=== PATIENT | male | born 1940 | race Caucasian/White ===

== ENCOUNTER 2018-02-03 11:08 | Inpatient (IN) | payer MEDICARE, MEDICAID ==
[2018-02-03] MEDS ORDERED: Lactated Ringer 1,000 ML IV ONE (12:00)
[2018-02-03 12:12] LABS: ALB/GLOB RATIO 2.1 (1.0-1.8); ALBUMIN 4.4 gm/dL (4.2-5.5); ALKALINE PHOSPHATASE 54 U/L (34-104); ANION GAP 15.4 (7.0-16.0); BILIRUBIN,TOTAL 0.7 mg/dL (0.3-1.0); BUN - UREA NITROGEN 30 mg/dL (7-25); CALCIUM SERUM 10.3 mg/dL (8.6-10.3); CHLORIDE 101 mEq/L (98-107); CREATININE - SERUM 1.6 mg/dL (0.7-1.3); GLUCOSE 169 mg/dL (70-105); MAGNESIUM 2.4 mg/dL (1.9-2.7); PHOSPHOROUS 3.1 mg/dL (2.5-5.0); POTASSIUM SERUM 4.4 mEq/L (3.5-5.1); SGOT 17 U/L (13-39); SGPT/ALT 16 U/L (7-52); SODIUM SERUM 138 mEq/L (136-145); TOTAL PROTEIN,SERUM 6.5 gm/dL (6.0-8.3)
[2018-02-03 12:15] LABS: % BASOPHILS 0.9 % (0.0-2.0); % LYMPHOCYTES 26.7 % (20.0-50.0); % MONOCYTES 10.3 % (2.0-10.0); % NEUTROPHILS 61.1 % (40.0-80.0); HEMATOCRIT 40.5 % (41.0-60); HEMOGLOBIN 13.3 gm/dL (12-16); LYMPHOCYTE ABSOLUTE 1.2 Th/cmm (1.5-3.0); MEAN CELL VOLUME 92.5 fl (80-99); MEAN CORPUSCULAR HEMOGLOBIN 30.3 pg (27.0-31.0); MEAN CORPUSCULAR HGB CONC 32.8 pg (28.0-36.0); MONOCYTE ABSOLUTE 0.5 Th/cmm (0.3-1.0); NEUTROPHILE ABSOLUTE 2.9 Th/cmm (1.8-8.0); PLATELET COUNT 246 Th/cmm (150-400); RED BLOOD COUNT 4.38 Mil/cmm (3.80-5.80); RED CELL DISTRIBUTION WIDTH 12.5 % (11.5-20.0); WHITE BLOOD COUNT 4.6 Th/cmm (4.8-10.8)
--- NOTE | 2018-02-03 12:17 | ED Physician Chart ---
ED Chief Complaint/HPI - Patient Information Date Seen:: 02/03/18 Time Seen:: 11:15 Chief Complaint:: rectal pain History of Present Illness:: rectal pain and constipation Allergies:: Allergies Allergy/AdvReac Type Severity Reaction Status Date / Time No Known Allergies Allergy Verified 12/04/15 16:32 Vitals:: Vital Signs - 8 hr 02/03/18 11:15 Temp 97.9 F HR 77 RR 19 BP 141/71 O2 Sat % 98 Historian:: Patient Review:: Nurse's Note Reviewed ED Review of Systems - Review of Systems General/Constitutional: No fever, No chills, No weight loss, No weakness, No diaphoresis, No edema, No loss of appetite Skin: No skin lesions, No rash, No bruising Head: No headache, No light-headedness Eyes: No loss of vision, No pain, No diplopia ENT: No earache, No nasal drainage, No sore throat, No tinnitus Neck: No neck pain, No swelling, No thyromegaly, No stiffness, No mass noted Cardio Vascular: No chest pain, No palpitations, No PND, No orthopnea, No edema Pulmonary: No SOB, No cough, No sputum, No wheezing GI: No nausea, No vomiting, No diarrhea, No pain, No melena, No hematochezia, Constipation, No hematemesis, Other (rectal pain) G/U: No dysuria, No frequency, No hematuria, Other (decreased urine output) Musculoskeletal: No bone or joint pain, No back pain, No muscle pain Endocrine: No polyuria, No polydipsia Psychiatric: No prior psych history, No depression, No anxiety, No suicidal ideation Hematopoietic: No bruising, No lymphadenopathy Allergic/Immuno: No urticaria, No angioedema Neurological: No syncope, No focal symptoms, No weakness, No paresthesia, No headache, No seizure, No dizziness, No confusion, No vertigo ED Past Medical History - Past Medical History Obtainable: No Past Medical History: HTN, DM, CAD, Asthma/COPD, Other (BPH) Family Medical History - Family Member Father History Unknown: Yes Ethnicity: Non- Hx Family COPD: Yes ED Physical Exam - Physical Examination General/Constitutional: Awake, Well-developed, well-nourished, Alert, No distress, GCS 15, Non-toxic appearing, Ambulatory Head: Atraumatic Eyes: Lids, conjuctiva normal, PERRL, EOMI Skin: Nl inspection, No rash, No skin lesions, No ecchymosis, Well hydrated, No lymphadenopathy ENMT: External ears, nose nl Neck: Nontender, No nuchal rigidity, No stridor Respiratory: Nl effort/Exclusion, Clear to Auscultation, No Wheeze/Rhonchi/Rales Cardio Vascular: RRR, No murmur, gallop, rubs, NL S1 S2 GI: No tenderness/rebounding/guarding, No organomegaly, No hernia, No mass/ bruits, No McBurney tenderness, Rectum exam nl Other GI comments:: distended. no hemorrhoids externally. no anal fissure. rectal exam performed: impacted. soft, formed stool present immediately on rectal exam. no masses felt. no need for occult of stool to be performed. Extremities: No tenderness or effusion, Full ROM, normal strength in all extremities, No edema, Normal digits & nails Neuro/Psych: Alert/oriented, Normal sensory exam, Normal motor strength, Mood normal, No focal deficits Misc: Normal back, No paraspinal tenderness ED Labs/Radiology/EKG Results - Lab Results Results: Laboratory Tests 02/03/18 02/03/18 11:39 11:39 Sodium 138 Potassium 4.4 Chloride 101 Carbon Dioxide 26.0 Anion Gap 15.4 BUN 30 H Creatinine 1.6 H Est GFR ( Amer) TNP Est GFR (Non-Af Amer) TNP BUN/Creatinine Ratio 18.8 Glucose 169 H Calcium 10.3 Phosphorus 3.1 Magnesium 2.4 Total Bilirubin 0.7 AST 17 ALT 16 Alkaline Phosphatase 54 Total Protein 6.5 Albumin 4.4 Globulin 2.1 Albumin/Globulin Ratio 2.1 H Valproic Acid 49.0 L ED Assessment - Assessment General Assessment: EKG from 12:11:09 p.m. reveals normal sinus rhythm, poor r wave progression and flipped t wave in AVR. No urine at all when attempt at cath made. Dr. Woods called. He will admit the patient to med/surg patient ate lunch. ED Septic Shock - . Is Septic Shock (SBP<90, OR Lactate>4 mmol\L) present?: No - <6hrs of presentation: Vital Signs: Vital Signs - 8 hr 02/03/18 11:15 Temp 97.9 F HR 77 RR 19 BP 141/71 O2 Sat % 98 ED Reassessment (Disposition) - Reassessment Reassessment Condition:: Unchanged - Diagnosis Diagnosis:: Marked dehydration Prerenal with BUN of 30 and creatinine of 1.6 Constipation and stool impaction Diabetes mellitus Hypertension - Patient Disposition Discharge/Transfer:: Acute Care w/in this hosp Admitted to:: Med/Surg Condition at Disposition:: Stable, Unchanged
--- NOTE | 2018-02-03 12:45 | Diagnostic Imaging Report ---
KUB abdominal film HISTORY: Pain Exam demonstrates nondilated stool-filled large bowel. Bowel gas pattern otherwise nonspecific. No free intraperitoneal air. Electrode lead wires noted over the pelvis. Left hip arthroplasty is seen. Scoliosis and severe degenerative changes noted in the lower lumbar spine. IMPRESSION: 1. Stool-filled nondilated distal large bowel with an otherwise nonspecific appearance.
[2018-02-03] MEDS ORDERED: MINERAL OIL ENEMA 135 ML BOTTLE RC ONE (13:35)
[2018-02-03 16:02] LABS: ALB/GLOB RATIO 2.1 (1.0-1.8); ALKALINE PHOSPHATASE 47 U/L (34-104); ANION GAP 15.1 (7.0-16.0); BILIRUBIN,TOTAL 0.6 mg/dL (0.3-1.0); BUN - UREA NITROGEN 31 mg/dL (7-25); CARBON DIOXIDE 25.2 mEq/L (21.0-31.0); CHLORIDE 102 mEq/L (98-107); CHOLESTEROL 187 mg/dL (<200); CREATININE - SERUM 1.5 mg/dL (0.7-1.3); GLUCOSE 153 mg/dL (70-105); HDL -HIGH DENSITY LIPOPROTEIN 30 mg/dL (23-92); MAGNESIUM 2.4 mg/dL (1.9-2.7); POTASSIUM SERUM 4.3 mEq/L (3.5-5.1); SGOT 14 U/L (13-39); SGPT/ALT 15 U/L (7-52); SODIUM SERUM 138 mEq/L (136-145); TOTAL PROTEIN,SERUM 5.9 gm/dL (6.0-8.3); TRIGLYCERIDES 192 mg/dL (<150)
[2018-02-03] MEDS ORDERED: Influenza Vaccine (65 yr & older) 0.5 ml Syr IM ONE (16:17)
[2018-02-03] MEDS ORDERED: Pneumococcal Vaccine 0.5 mL Vial IM ONE (16:17)
[2018-02-03] MEDS: Sodium Chloride 0.9% 1,000 ML IV SCH (16:36)
[2018-02-03] MEDS: Lactulose 10 Gm/15 mL 30mL UDC PO PRN (19:46)
[2018-02-03] MEDS: INSULIN ASPART SLIDING SCALE 100 UNITS/ML UNIT SUBQ SCH (21:03)
[2018-02-03] MEDS ORDERED: Magnesium Hydroxide (MOM) 30 mL UDC PO PRN (22:05)
[2018-02-03] MEDS ORDERED: DOC Q LACE PO SCH (22:15)
[2018-02-03] MEDS ORDERED: APAP/Codeine 300 mg/30 mg Tab PO SCH (22:15)
[2018-02-03] MEDS ORDERED: DICLOFENAC SODIUM 50 MG PO SCH (22:15)
[2018-02-04] MEDS: Pantoprazole 40 mg EC Tab PO SCH (06:48)
[2018-02-04] MEDS: INSULIN ASPART SLIDING SCALE 100 UNITS/ML UNIT SUBQ SCH ×5 (07:02→21:18)
[2018-02-04] MEDS ORDERED: INSULIN HUMAN REGULAR 100 UNITS/ML UNIT SUBQ SCH (07:30)
[2018-02-04] MEDS: Potassium Chloride 10 mEq ER Tab PO SCH (08:48)
[2018-02-04] MEDS: Lactulose 10 Gm/15 mL 30mL UDC PO PRN (08:49)
[2018-02-04] MEDS ORDERED: Non-Formulary Item 1 EA (Metformin Hcl [Metformin Hcl Er] 1,000 MG) PO SCH (09:00)
[2018-02-04] MEDS ORDERED: Non-Formulary Item 1 EA (Mirabegron [Myrbetriq] 25 MG) PO SCH (09:00)
--- NOTE | 2018-02-04 15:52 | History & Physical ---
ADMIT DATE: 02/04/2018 HISTORY OF PRESENT ILLNESS: This is a 77-year-old male with past medical history of hypertension, who came in because of abdominal pain. A few hours prior to admission, the patient experienced diffuse nonspecific abdominal pain. He had not moved his bowels for several days. Thus, he was brought to the Emergency Room. KUB showed stool filled nondilated distal large bowel. He received several doses of lactulose and had at least 3 large bowel movements this morning. He had no nausea and vomiting, fever/chills, dysuria. His labs also revealed a BUN/creatinine of 35/1.5. PAST MEDICAL HISTORY: 1. Type 2 diabetes mellitus. 2. Essential hypertension. 3. Coronary artery disease. 4. Asthma/COPD. 5. Benign prostatic hypertrophy. 6. Epilepsy. 7. Depression. CURRENT MEDICATIONS: Currently on amlodipine, APAP/codeine, aspirin, bisacodyl, BuSpar, clonidine, divalproex, Colace, Pepcid, Prozac, Neurontin, Glucotrol, Apresoline, Aspart, lactulose, loratadine, lorazepam, losartan, magnesium hydroxide, metformin, Myrbetriq, Naprosyn, pantoprazole, pneumococcal vaccine, potassium, simethicone, tamsulosin. ALLERGIES: No known drug allergies. SOCIAL AND FAMILY HISTORY: I was unable to obtain from the patient because he is nonverbal at the present time. REVIEW OF SYSTEMS: Again, I was not able to decipher directly from the patient because he is nonverbal at the present time. PHYSICAL EXAMINATION: GENERAL: The patient is arousable, not in any form of distress, looks depressed. VITAL SIGNS: His blood pressure is 165/72, pulse 59, temperature 97.4 degrees. SKIN: Poor turgor, warm, no rash, no jaundice appreciated. HEENT: Head normocephalic, atraumatic. Eyes: Extraocular muscles intact. Pupils equal, round, reactive to light and accommodates. Anicteric sclerae. [place] conjunctivae. Nose, midline nasal septum. Mouth: Dry mucosa. Poor dentition. NECK: Supple, no adenopathy, no thyromegaly, no bruits. Trachea palpated in the midline. CHEST AND CARDIOVASCULAR: S1, S2. No rub, murmur, no gallop appreciated. Point of maximal impulse fifth intercostal space, left midclavicular line. No abdominal or femoral bruits appreciated. LUNGS: Equal expansion, no use of accessory muscles. No supraclavicular retractions. Decreased breath sounds, few rhonchi, but no rales nor wheezes appreciated. ABDOMEN: Flat, but now soft, diminished bowel sounds. No further tenderness on palpation. No rebound nor muscle guarding. There were no bruits either systolic or diastolic. RECTAL: The patient refused. GENITOURINARY: Normal appearing male genitalia. MUSCULOSKELETAL: No effusions present in his joints with limited range of motion. EXTREMITIES: No evidence of edema, cyanosis nor clubbing with palpable femoral, popliteal and dorsalis pedis pulses. NEUROLOGIC: The patient, as mentioned, is arousable, not in any form of distress, remains nonverbal at the present time. He was not able to follow my neuro commands, so I was not able to pursue further my neuro exam. LABORATORY DATA AND STUDIES: Did reveal white count of 4.6, hemoglobin 13.3, hematocrit 40.5, platelets 246, polys 61.1%. Sodium 138, potassium 4.3, chloride 102, CO2 of 25, BUN 31, creatinine 1.5, glucose 153, calcium 10, phosphorus 3.1, magnesium 2.4, albumin is 4. IMPRESSION: 1. Abdominal pain secondary to constipation. 2. Constipation secondary to intake of narcotics, possible diabetic gastroparesis, ileus. 3. Acute kidney injury is likely prerenal, which have progressed to acute tubular injury. The patient has had abdominal pain and was not able to take in fluids as well as oral feedings. He was also taking Lasix. Thus, he was not able to replenish both sensible and insensible fluid losses. The possibility also of medication such as angiotensin receptor darwin, nonsteroidals should be considered, but this may cause acute interstitial nephritis. He also has BPH, Myrbetriq and tamsulosin for which we should also consider the possibility of obstructive uropathy. 4. Type 2 diabetes mellitus. 5. Essential hypertension. 6. Coronary artery disease. 7. Asthma/chronic obstructive pulmonary disease. 8. Benign prostatic hypertrophy. 9. Epilepsy. 10. Depression. PLAN: 1. Continue with laxatives. 2. IV fluids since the patient is dehydrated. 3. Urinalysis. 4. Urine spot sodium, eosinophils, and creatinine. 5. Renal ultrasound. 6. Urine microalbumin to creatinine ratio. 7. Electrolytes. 8. Discontinue nonsteroidals. [facility]# [id number]
[2018-02-04] MEDS: Sodium Chloride 0.9% 1,000 ML IV SCH (19:56)
[2018-02-05] MEDS: APAP/Codeine 300 mg/30 mg Tab PO PRN ×2 (00:39→22:10)
[2018-02-05 05:34] LABS: HEMOGLOBIN 13.6 gm/dL (12-16); RED BLOOD COUNT 4.44 Mil/cmm (3.80-5.80); WHITE BLOOD COUNT 6.7 Th/cmm (4.8-10.8)
[2018-02-05 05:35] LABS: % NEUTROPHILS 64.7 % (40.0-80.0); HEMATOCRIT 41.5 % (41.0-60); MEAN CELL VOLUME 93.5 fl (80-99); MEAN CORPUSCULAR HEMOGLOBIN 30.7 pg (27.0-31.0); MEAN CORPUSCULAR HGB CONC 32.8 pg (28.0-36.0); MEAN PLATELET VOLUME 8.7 fl; PLATELET COUNT 218 Th/cmm (150-400); RED CELL DISTRIBUTION WIDTH 12.1 % (11.5-20.0)
[2018-02-05 05:36] LABS: % EOSINOPHILS 0.1 % (0.0-5.0); % MONOCYTES 10.3 % (2.0-10.0)
[2018-02-05 06:09] LABS: URINE SOURCE MIDSTREAM
[2018-02-05 07:10] LABS: URINE BILIRUBIN NEGATIVE (NEGATIVE); URINE BLOOD NEGATIVE (NEGATIVE); URINE GLUCOSE (UA) NEGATIVE (NEGATIVE); URINE KETONE NEGATIVE (NEGATIVE); URINE LEUKOCYTE ESTERASE NEGATIVE (NEGATIVE); URINE NITRATE NEGATIVE (NEGATIVE); URINE PROTEIN NEGATIVE (NEGATIVE); URINE UROBILINOGEN 0.2 E.U./dL (0.2 - 1.0)
[2018-02-05] MEDS: INSULIN ASPART SLIDING SCALE 100 UNITS/ML UNIT SUBQ SCH ×4 (07:35→22:24)
[2018-02-05 07:58] LABS: URINE CLARITY CLEAR (CLEAR); URINE COLOR YELLOW; URINE MICROSCOPIC INDICATED? YES
[2018-02-05 07:59] LABS: URINE BACTERIA OCCASIONAL /hpf (NONE SEEN); URINE EPITHELIAL CELLS NONE SEEN /lpf (FEW); URINE RBC NONE SEEN /hpf (0-5); URINE WBC 0-2 /hpf (0-5)
[2018-02-05] MEDS: Sodium Chloride 0.9% 1,000 ML IV SCH ×2 (08:27→22:10)
[2018-02-05 08:28] LABS: ANION GAP 12.1 (7.0-16.0); BUN - UREA NITROGEN 16 mg/dL (7-25); CALCIUM SERUM 9.1 mg/dL (8.6-10.3); CARBON DIOXIDE 24.7 mEq/L (21.0-31.0); CHLORIDE 108 mEq/L (98-107); CREATININE - SERUM 1.1 mg/dL (0.7-1.3); GLUCOSE 147 mg/dL (70-105); MAGNESIUM 1.8 mg/dL (1.9-2.7); PHOSPHOROUS 2.8 mg/dL (2.5-5.0); POTASSIUM SERUM 3.8 mEq/L (3.5-5.1); SODIUM SERUM 141 mEq/L (136-145); URIC ACID 3.9 mg/dL (4.4-7.6)
[2018-02-05] MEDS: Potassium Chloride 10 mEq ER Tab PO SCH (08:51)
[2018-02-05] MEDS: Pantoprazole 40 mg EC Tab PO SCH (08:55)
--- NOTE | 2018-02-05 09:57 | Diagnostic Imaging Report ---
Renal ultrasound HISTORY: Acute renal injury. COMPARISON: None Technique: Sonography of the kidneys and urinary bladder was performed in multiple planes. FINDINGS: The right kidney measures 12.2 x 5.6 cm. No evidence of focal lesions or hydronephrosis. The left kidney measures 10.5 x 6.4 cm. No evidence of focal lesions or hydronephrosis. There is mild thinning of the bilateral renal cortices. The bladder wall is mildly thickened. A urinary bladder diverticulum is noted measuring 2.8 x 2.0 cm. Note, patient was unable to void. IMPRESSION: No evidence of hydronephrosis. Urinary bladder diverticulum noted. Mild urinary bladder wall thickening, inflammatory or infiltrative process cannot be excluded. Mild thinning of the bilateral renal cortices.
[2018-02-05 10:30] LABS: EOSINOPHIL SMEAR SOURCE URINE; EOSINOPHILS SMEAR COUNT NONE SEEN (NONE SEEN)
[2018-02-05] MEDS ORDERED: Mag Sulfate 2gm/50mL Premix 2 GM/50 ML BAG IV ONE (12:14)
--- NOTE | 2018-02-05 12:21 | General Progress Note ---
Subjective - Review of Systems Service Date: 02/05/18 Subjective: still has abd discomfort Objective - Results Result Diagrams: 02/05/18 05:05 02/05/18 05:05 Recent Labs: Laboratory Last Values WBC 6.7 Th/cmm (4.8-10.8) 02/05/18 05:05 RBC 4.44 Mil/cmm (3.80-5.80) 02/05/18 05:05 Hgb 13.6 gm/dL (12-16) 02/05/18 05:05 Hct 41.5 % (41.0-60) 02/05/18 05:05 MCV 93.5 fl (80-99) 02/05/18 05:05 MCH 30.7 pg (27.0-31.0) 02/05/18 05:05 MCHC Differential 32.8 pg (28.0-36.0) 02/05/18 05:05 RDW 12.1 % (11.5-20.0) 02/05/18 05:05 Plt Count 218 Th/cmm (150-400) 02/05/18 05:05 MPV 8.7 fl 02/05/18 05:05 Neutrophils % 64.7 % (40.0-80.0) 02/05/18 05:05 Lymphocytes % 23.0 % (20.0-50.0) 02/05/18 05:05 Monocytes % 10.3 % (2.0-10.0) H 02/05/18 05:05 Eosinophils % 0.1 % (0.0-5.0) 02/05/18 05:05 Basophils % 0.0 % (0.0-2.0) 02/05/18 05:05 Eos Smear Source URINE 02/05/18 05:45 Eos Smear Total Cells NONE SEEN (NONE SEEN) 02/05/18 05:45 Sodium 141 mEq/L (136-145) 02/05/18 05:05 Potassium 3.8 mEq/L (3.5-5.1) 02/05/18 05:05 Chloride 108 mEq/L (98-107) H 02/05/18 05:05 Carbon Dioxide 24.7 mEq/L (21.0-31.0) 02/05/18 05:05 Anion Gap 12.1 (7.0-16.0) 02/05/18 05:05 BUN 16 mg/dL (7-25) 02/05/18 05:05 Creatinine 1.1 mg/dL (0.7-1.3) 02/05/18 05:05 Est GFR ( Amer) TNP 02/05/18 05:05 Est GFR (Non-Af Amer) TNP 02/05/18 05:05 BUN/Creatinine Ratio 14.5 02/05/18 05:05 Glucose 147 mg/dL (70-105) H 02/05/18 05:05 POC Glucose 177 MG/DL (70 - 105) H 02/05/18 11:18 Uric Acid 3.9 mg/dL (4.4-7.6) L 02/05/18 05:05 Calcium 9.1 mg/dL (8.6-10.3) 02/05/18 05:05 Phosphorus 2.8 mg/dL (2.5-5.0) 02/05/18 05:05 Magnesium 1.8 mg/dL (1.9-2.7) L 02/05/18 05:05 Total Bilirubin 0.6 mg/dL (0.3-1.0) 02/03/18 11:39 AST 14 U/L (13-39) 02/03/18 11:39 ALT 15 U/L (7-52) 02/03/18 11:39 Alkaline Phosphatase 47 U/L (34-104) 02/03/18 11:39 Troponin I 0.01 ng/mL (0.01-0.05) 02/03/18 11:39 Total Protein 5.9 gm/dL (6.0-8.3) L 02/03/18 11:39 Albumin 4.0 gm/dL (4.2-5.5) L 02/03/18 11:39 Globulin 1.9 gm/dL 02/03/18 11:39 Albumin/Globulin Ratio 2.1 (1.0-1.8) H 02/03/18 11:39 Triglycerides 192 mg/dL (<150) H 02/03/18 11:39 Cholesterol 187 mg/dL (<200) 02/03/18 11:39 LDL Cholesterol Direct 154 mg/dL (75-193) 02/03/18 11:39 HDL Cholesterol 30 mg/dL (23-92) 02/03/18 11:39 TSH 1.25 uIU/ml (0.34-5.60) 02/03/18 11:39 Urine Source MIDSTREAM 02/05/18 05:45 Urine Color YELLOW 02/05/18 05:45 Urine Clarity CLEAR (CLEAR) 02/05/18 05:45 Urine pH 6.0 (4.6 - 8.0) 02/05/18 05:45 Ur Specific [place] 1.020 (1.005-1.030) 02/05/18 05:45 Urine Protein NEGATIVE mg/dL (NEGATIVE) 02/05/18 05:45 Urine Glucose (UA) NEGATIVE mg/dL (NEGATIVE) 02/05/18 05:45 Urine Ketones NEGATIVE mg/dL (NEGATIVE) 02/05/18 05:45 Urine Blood NEGATIVE (NEGATIVE) 02/05/18 05:45 Urine Nitrate NEGATIVE (NEGATIVE) 02/05/18 05:45 Urine Bilirubin NEGATIVE (NEGATIVE) 02/05/18 05:45 Urine Urobilinogen 0.2 E.U./dL (0.2 - 1.0) 02/05/18 05:45 Ur Leukocyte Esterase NEGATIVE (NEGATIVE) 02/05/18 05:45 Urine RBC NONE SEEN /hpf (0-5) 02/05/18 05:45 Urine WBC 0-2 /hpf (0-5) 02/05/18 05:45 Ur Epithelial Cells NONE SEEN /lpf (FEW) 02/05/18 05:45 Urine Bacteria OCCASIONAL /hpf (NONE SEEN) 02/05/18 05:45 Ur Random Sodium 91 mmol/L 02/05/18 05:45 Urine Creatinine 125.0 mg/dl (39.0-259.0) 02/05/18 05:45 Valproic Acid 49.0 ug/mL (50.0-100.0) L 02/03/18 11:39 - Physical Exam Vitals and I&O: Vital Signs Temp 96.9 F 02/05/18 11:56 Pulse 56 02/05/18 11:56 Resp 18 02/05/18 11:56 BP 157/60 02/05/18 11:56 Pulse Ox 98 02/05/18 11:56 Intake & Output 02/04/18 02/05/18 02/05/18 18:59 06:59 18:59 Intake Total 700 1346.25 142.5 Balance 700 1346.25 142.5 Weight (lbs) 81.647 kg 81.193 kg Intake: Intake, IV Amount 796.25 142.5 Sodium Chloride 0.9% 1, 796.25 142.5 000 ml @ 75 mls/hr IV . [id number] [facility] Rx#:[id number] Oral 700 550 Other: # Voids 3 4 # Bowel Movements 2 2 Stool Characteristics Soft Soft Formed Formed Brown Brown Weight Source Bedscale Bedscale Active Medications: Current Medications Acetaminophen/Codeine Phosphate (Tylenol W/Codeine #3) 1 tab PO BID PRN PRN Reason: Severe Pain Stop: 04/04/18 22:14 Last Admin: 02/05/18 00:39 Dose: 1 tab Amlodipine Besylate (Norvasc) 5 mg PO DAILY [facility] Stop: 04/05/18 08:59 Last Admin: 02/05/18 08:51 Dose: 5 mg Aspirin (Ecotrin) 81 mg PO DAILY [facility] Stop: 04/05/18 08:59 Last Admin: 02/05/18 08:51 Dose: 81 mg Bisacodyl (Dulcolax 10 Mg Supp) 10 mg RC HS [facility] Stop: 04/04/18 20:59 Last Admin: 02/04/18 20:45 Dose: 10 mg Buspirone HCl (Buspar) 10 mg PO TID [facility]; Protocol Stop: 04/04/18 22:14 Last Admin: 02/05/18 08:55 Dose: 10 mg Divalproex Sodium (Depakote Dr) 500 mg PO BID [facility]; Protocol Stop: 04/04/18 22:14 Last Admin: 02/05/18 08:51 Dose: 500 mg Docusate Sodium (Colace) 250 mg PO BID [facility] Stop: 04/04/18 16:59 Last Admin: 02/05/18 08:51 Dose: 250 mg Famotidine (Pepcid) 20 mg PO DAILY [facility] Stop: 04/05/18 08:59 Last Admin: 02/05/18 08:51 Dose: 20 mg Fluoxetine HCl (Prozac) 10 mg PO DAILY [facility]; Protocol Stop: 04/05/18 08:59 Last Admin: 02/05/18 08:50 Dose: 10 mg Gabapentin (Neurontin) 200 mg PO TID [facility] Stop: 04/04/18 22:14 Last Admin: 02/05/18 08:50 Dose: 200 mg Glipizide (Glucotrol) 10 mg PO BIDAC [facility] Stop: 04/05/18 07:29 Last Admin: 02/05/18 08:55 Dose: 10 mg Hydralazine HCl (Apresoline) 25 mg PO TID [facility] Stop: 04/05/18 08:59 Last Admin: 02/05/18 08:51 Dose: 25 mg Sodium Chloride (Nacl 0.9%) 1,000 mls @ 75 mls/hr IV .[id number] [facility] Stop: 04/04/18 15:10 Last Admin: 02/05/18 08:27 Dose: 75 mls/hr Magnesium Sulfate (Magnesium Sulfate Premix) 2 gm in 50 mls @ 25 mls/hr IV X1 ONE Stop: 02/05/18 14:13 Insulin Aspart (Novolog Insulin Sliding Scale) 2 units SUBQ ACHS [facility]; Protocol Stop: 04/04/18 16:29 Last Admin: 02/05/18 12:12 Dose: 2 units Lactulose (Cephulac) 30 gm PO DAILY PRN PRN Reason: Constipation Stop: 04/04/18 15:10 Last Admin: 02/04/18 08:49 Dose: 30 gm Loratadine (Claritin) 10 mg PO DAILY [facility] Stop: 04/05/18 08:59 Last Admin: 02/05/18 08:50 Dose: 10 mg Lorazepam (Ativan) 0.5 mg PO Q12H PRN; Protocol PRN Reason: Anxiety Stop: 04/04/18 22:04 Losartan Potassium (Cozaar) 100 mg PO BID [facility] Stop: 04/05/18 08:59 Last Admin: 02/05/18 08:52 Dose: 100 mg Magnesium Hydroxide (Milk Of Magnesia) 30 ml PO DAILY PRN PRN Reason: Constipation Stop: 04/04/18 22:04 Miscellaneous (Metformin Hcl [Metformin Hcl Er]) 1,000 mg PO BID [facility] Stop: 04/05/18 08:59 Miscellaneous (Mirabegron [Myrbetriq]) 25 mg PO DAILY [facility] Stop: 04/05/18 08:59 Mupirocin (Bactroban Oint) 1 appl NS BID [facility] Stop: 02/09/18 09:01 Last Admin: 02/05/18 08:55 Dose: 1 appl Pantoprazole Sodium (Protonix) 40 mg PO QDAC [facility] Stop: 04/05/18 07:29 Last Admin: 02/05/18 08:55 Dose: 40 mg Potassium Chloride (Klor-Con) 10 meq PO DAILY [facility] Stop: 04/05/18 08:59 Last Admin: 02/05/18 08:51 Dose: 10 meq Simethicone (Mylicon) 80 mg PO Q6H PRN PRN Reason: flatulence Stop: 04/04/18 22:04 Tamsulosin HCl (Flomax) 0.4 mg PO BID [facility] Stop: 04/05/18 08:59 Last Admin: 02/05/18 08:50 Dose: 0.4 mg General: Alert, Mild distress HEENT: Atraumatic, Mucous membr. moist/pink Neck: Supple, +2 carotid pulse wo bruit Cardiovascular: Regular rate, Normal S1, Normal S2 Lungs: Clear to auscultation Abdomen: Bowel sounds, Soft, Distended Extremities: no Edema Neurological: Sensation intact Skin: no Rash Psych/Mental Status: Mood NL - Procedures Procedures: Procedures Procedure Code Date EGD BIOPSY SINGLE/MULTIPLE 37588 01/07/04 ESOPHAGOGASTRODUODENOSCOPY [EGD] W/CLOSED BIOPSY 45.16 01/07/04 INJECT/INFUSE NEC 99.29 02/12/12 LASER SURGERY OF PROSTATE 54145 02/20/06 OTH & OPEN REPAIR INDIRECT INGUINAL HERNIA W GRFT OR PROSTH 53.04 10/31/06 OTHER GROUP THERAPY 94.44 06/28/06 RECREATIONAL THERAPY 93.81 06/28/06 REREPAIR ING HERNIA BLOCKED 51522 10/31/06 TRANSURETHRAL PROSTATECTOMY (TULIP) 60.21 02/20/06 VACCINATION NEC 99.55 11/10/13 Assessment/Plan - Problem List Patient Problems: All Active Problems ABDOMINAL AND RECTAL PAIN (Acute) - Assessment Assessment: Abd pain 2nd to constipation Constipation 2nd to narcotics, Imodium MRSA Nares GLENN pre renal T2 DM Ess Htn CAD - Plan Plan: Lab - Result Diagrams 02/05/18 05:05 02/05/18 05:05 Current Medications Acetaminophen/Codeine Phosphate (Tylenol W/Codeine #3) 1 tab PO BID PRN PRN Reason: Severe Pain Stop: 04/04/18 22:14 Last Admin: 02/05/18 00:39 Dose: 1 tab Amlodipine Besylate (Norvasc) 5 mg PO DAILY [facility] Stop: 04/05/18 08:59 Last Admin: 02/05/18 08:51 Dose: 5 mg Aspirin (Ecotrin) 81 mg PO DAILY [facility] Stop: 04/05/18 08:59 Last Admin: 02/05/18 08:51 Dose: 81 mg Bisacodyl (Dulcolax 10 Mg Supp) 10 mg RC HS [facility] Stop: 04/04/18 20:59 Last Admin: 02/04/18 20:45 Dose: 10 mg Buspirone HCl (Buspar) 10 mg PO TID [facility]; Protocol Stop: 04/04/18 22:14 Last Admin: 02/05/18 08:55 Dose: 10 mg Divalproex Sodium (Depakote Dr) 500 mg PO BID [facility]; Protocol Stop: 04/04/18 22:14 Last Admin: 02/05/18 08:51 Dose: 500 mg Docusate Sodium (Colace) 250 mg PO BID [facility] Stop: 04/04/18 16:59 Last Admin: 02/05/18 08:51 Dose: 250 mg Famotidine (Pepcid) 20 mg PO DAILY [facility] Stop: 04/05/18 08:59 Last Admin: 02/05/18 08:51 Dose: 20 mg Fluoxetine HCl (Prozac) 10 mg PO DAILY [facility]; Protocol Stop: 04/05/18 08:59 Last Admin: 02/05/18 08:50 Dose: 10 mg Gabapentin (Neurontin) 200 mg PO TID [facility] Stop: 04/04/18 22:14 Last Admin: 02/05/18 08:50 Dose: 200 mg [facility] Stop: 04/05/18 07:29 Last Admin: 02/05/18 08:55 Dose: 10 mg Hydralazine HCl (Apresoline) 25 mg PO TID [facility] Stop: 04/05/18 08:59 Last Admin: 02/05/18 08:51 Dose: 25 mg Sodium Chloride (Nacl 0.9%) 1,000 mls @ 75 mls/hr IV .[id number] [facility] Stop: 04/04/18 15:10 Last Admin: 02/05/18 08:27 Dose: 75 mls/hr Magnesium Sulfate (Magnesium Sulfate Premix) 2 gm in 50 mls @ 25 mls/hr IV X1 ONE Stop: 02/05/18 14:13 Insulin Aspart (Novolog Insulin Sliding Scale) 2 units SUBQ ACHS [facility]; Protocol Stop: 04/04/18 16:29 Last Admin: 02/05/18 12:12 Dose: 2 units Lactulose (Cephulac) 30 gm PO DAILY PRN PRN Reason: Constipation Stop: 04/04/18 15:10 Last Admin: 02/04/18 08:49 Dose: 30 gm Loratadine (Claritin) 10 mg PO DAILY [facility] Stop: 04/05/18 08:59 Last Admin: 02/05/18 08:50 Dose: 10 mg Lorazepam (Ativan) 0.5 mg PO Q12H PRN; Protocol PRN Reason: Anxiety Stop: 04/04/18 22:04 Losartan Potassium (Cozaar) 100 mg PO BID [facility] Stop: 04/05/18 08:59 Last Admin: 02/05/18 08:52 Dose: 100 mg Magnesium Hydroxide (Milk Of Magnesia) 30 ml PO DAILY PRN PRN Reason: Constipation Stop: 04/04/18 22:04 Miscellaneous (Metformin Hcl [Metformin Hcl Er]) 1,000 mg PO BID [facility] Stop: 04/05/18 08:59 Miscellaneous (Mirabegron [Myrbetriq]) 25 mg PO DAILY [facility] Stop: 04/05/18 08:59 Mupirocin (Bactroban Oint) 1 appl NS BID [facility] Stop: 02/09/18 09:01 Last Admin: 02/05/18 08:55 Dose: 1 appl Pantoprazole Sodium (Protonix) 40 mg PO QDAC [facility] Stop: 04/05/18 07:29 Last Admin: 02/05/18 08:55 Dose: 40 mg Potassium Chloride (Klor-Con) 10 meq PO DAILY [facility] Stop: 04/05/18 08:59 Last Admin: 02/05/18 08:51 Dose: 10 meq Simethicone (Mylicon) 80 mg PO Q6H PRN PRN Reason: flatulence Stop: 04/04/18 22:04 Tamsulosin HCl (Flomax) 0.4 mg PO BID [facility] Stop: 04/05/18 08:59 Last Admin: 02/05/18 08:50 Dose: 0.4 mg Lab - Result Diagrams 02/05/18 05:05 02/05/18 05:05 Pt. had BM last nite still has abd distension but more soft replace Mg repeat KUB
[2018-02-06] MEDS: INSULIN ASPART SLIDING SCALE 100 UNITS/ML UNIT SUBQ SCH ×2 (06:33→12:20)
[2018-02-06] MEDS: Pantoprazole 40 mg EC Tab PO SCH (06:42)
--- NOTE | 2018-02-06 09:16 | Diagnostic Imaging Report ---
KUB abdominal film HISTORY: Pain, abdominal distention There is a nonspecific gas pattern of nondilated bowel. No free peritoneal air. Electrode lead wire projects over the lower mid pelvis. Left hip arthroplasty is seen. Degenerative changes noted throughout the spine. IMPRESSION: 1. Nonspecific bowel gas pattern with no acute radiographic abnormalities
[2018-02-06] MEDS: Potassium Chloride 10 mEq ER Tab PO SCH (09:27)
[2018-02-06] MEDS: APAP/Codeine 300 mg/30 mg Tab PO PRN (14:18)
--- NOTE | 2018-02-06 14:49 | Discharge Summary ---
DATE OF DISCHARGE: 02/06/2018 ADMITTING DIAGNOSES: 1. Abdominal pain secondary to constipation. 2. Constipation, likely partially secondary to chronic narcotic usage. 3. Acute renal insufficiency/azotemia. SECONDARY DIAGNOSES: 1. Type 2 diabetes. 2. Essential hypertension. 3. History of coronary artery disease. 4. History of asthma/chronic obstructive pulmonary disease. 5. Benign prostatic hypertrophy. 6. History of epilepsy. 7. History of depression. 8. History of acid reflux disease. DISCHARGE DIAGNOSES: 1. Abdominal pain - improved. 2. Constipation - resolved. 3. MRSA positive screen. PERTINENT FINDINGS: There was a KUB done on 02/03/2018, showing stool filled nondilated distal large bowel with otherwise nonspecific appearance. On 02/04/2018, he underwent a renal ultrasound showing no evidence of hydronephrosis. Urinary bladder diverticulum noted. Mild urinary bladder wall thickening, inflammatory or infiltrative process cannot be excluded. Mild thickening of the bilateral renal cortices. Repeat KUB on 02/05/2018 shows nonspecific bowel gas pattern with no acute radiographic abnormalities. BRIEF HOSPITAL COURSE: The patient is a 77-year-old gentleman with the above-mentioned diagnosis who presented to the ER with a couple of day history of abdominal pain, distention, and constipation. He does take medications for pain on a chronic basis and is not on any bowel regimen and is not on any scheduled bowel regimen per notes. Apparently, he received several doses of lactulose and had 3 large bowel movements at the ED, but he denied any nausea, vomiting, fever, chills, or dysuria. Pertinent findings included the above-mentioned KUB and a BUN and creatinine of 35/1.5. He was admitted to the medical/surgical floor, where he was placed on IV fluids, Dulcolax per rectum and docusate sodium with improvement of his symptoms. He reports minimal abdominal pain and his BUN and creatinine improved to a level of 16/1.1 by 02-21. MEDICATIONS ON DISCHARGE: Amlodipine 5 every day, APAP/codeine 300 mg b.i.d. p.r.n. for severe pain, aspirin 81 every day, Dulcolax 5 mg p.o. at bedtime p.r.n. for constipation, BuSpar 10 mg t.i.d., ____clonidine 0.2 b.i.d., Depakote 500 mg b.i.d., docusate sodium 250 mg b.i.d., Pepcid 20 mg every day, fluoxetine 10 mg every day, gabapentin 200 mg t.i.d., Glucotrol 10 mg b.i.d. with meals, hydralazine 25 mg t.i.d., insulin sliding scale per protocol, lactulose 30 g p.o. every day p.r.n. for severe constipation, Claritin 10 mg every day, lorazepam 0.5 every 12 hours p.r.n. for agitation, losartan 100 mg b.i.d., milk of magnesia 30 mL every day p.r.n. for mild constipation, Glucophage 1000 mg b.i.d., Bactroban to both nares b.i.d. x 10 days, Protonix 40 mg daily, potassium chloride 10 mEq every day, Flomax 0.4 b.i.d., Mylicon 80 mg every 6 p.r.n. for flatulence. CONDITION ON DISCHARGE: Stable. DISPOSITION: The patient was discharged to [facility] given his MRSA positive screen. He is to complete Bactroban course at the shelter facility before being discharged back to his extended care facility. [facility]# [id number]
== END 2018-02-06 16:35 | DRG 391 ==
LOC: ER 11:08 → MSI 13:29
PROVIDERS: ADMIT Internal Medicine; ATTEND Internal Medicine
DX: K59.03 Drug induced constipation (principal); N17.0 Acute kidney failure with tubular necrosis; T40.605A Adverse effect of unspecified narcotics, initial encounter; I10 Essential (primary) hypertension; I25.10 Atherosclerotic heart disease of native coronary artery without angina pectoris; N40.0 Benign prostatic hyperplasia without lower urinary tract symptoms; F32.9 Major depressive disorder, single episode, unspecified; G40.909 Epilepsy, unspecified, not intractable, without status epilepticus; J44.9 Chronic obstructive pulmonary disease, unspecified; E11.9 Type 2 diabetes mellitus without complications; E86.0 Dehydration; T47.6X5A Adverse effect of antidiarrheal drugs, initial encounter; Y92.89 Other specified places as the place of occurrence of the external cause; Z79.84 Long term (current) use of oral hypoglycemic drugs
CPT/HCPCS: 36415-UA; 74000-TC; 76770-TC; 80048-TC; 80053-TC; 80061-TC; 80164-TC; 81001-TC; 81015-TC; 82043-90; 82570-TC; 82948-90; 83036-90; 83735-TC; 84100-TC; 84300-TC; 84443-TC; 84484-TC; 84550-TC; 85025-TC; 90732; 93005; J1815; J3475; J7030; Z7610